=== PATIENT | female | born 1960 | race Caucasian/White ===

== ENCOUNTER → 2017-05-01 | Outpatient (CLI) | payer OTHER ==
[~2017-05-01] MED LIST: ASPIRIN81 MG PO; COMBIVENT U/D3 M3 INH; ELIQUIS5 MG PO; FLEXERIL10 MG PO; FUROSEMIDE40 MG PO; IBUPROFEN PO; IBUPROFEN800 MG PO; LEVAQUIN PO; LORTAB 5/500 TA1 TA2 PO; PERCOCET5/325 PO; PHENERGAN W/CO120 ML PO; PREDNISONE10 MG PO; PRILOSEC20 M1 PO; SYMBICORT INH; THERA FLU; ZITHROMAX PO; [UNRECOGNIZED DRUG - OTHER] PO
--- NOTE | ~2017-05-01 | MR11 ---
[facility]. [facility] A Service of [facility] & [facility] RADIOLOGY TEXT RESULTS PATIENT: RICHELLE REID LOCATION: [facility] : 60 UNIT #: [id number] AGE: [address]: Jose Delatorre MD SEX: F ORDER DR: [id number] [address] [address] [id number] MR#: [id number] Acc #: [id number] NAME: RICHELLE REID : 1960 SEX: F STUDY DATE/TIME: 05/01/2017 11:31 UNIT: [facility] ROOM: STUDY DESCRIPTION: MR Ankle Wo Contrast Rt Attending Physician: Jeanne Delatorre M.D. Referring Physician: Jeanne Delatorre M.D. Ordering Physician: Jeanne Delatorre M.D. Primary Care Physician: Reg Dupree [facility] REPORT This report is preliminary unless electronic signature is present. EXAM MRI right ankle hindfoot without contrast 05/01/2017 HISTORY Order states, avascular necrosis. History sheet states no trauma or surgery. Diffuse ankle pain for less than 1.5 months. Multiple foci of AVN at other joints. COPD. COMPARISON Right ankle radiographs 04/25/2017 and MRI of the right foot 11/1978, facet. Office notes [facility] 04/25/2017. FINDINGS There has been development of multifocal avascular necrosis/bone infarct in the tibia, talus, and calcaneus. Enlarged bone infarct in the distal tibia extends to within 5 mm of the subarticular tibial plafond. Tibial bone infarct measures 4.8 x 2.3 cm (craniocaudal x transverse). There is no collapse or articular involvement. A second small bone infarct of the medial malleolus along its deep aspect probably communicates with the larger lesion. There is extensive avascular necrosis of the posterior half of the talus. Slight osteochondral irregularity and depression of the medial dome of the talus dates back to a lesion present in 2009 where there was a osteochondral lesion or fracture without depression. There is no talar dome collapse. The zone of the talar avascular necrosis involves the posterior facet and measures 2.6 cm AP x 1.7 cm craniocaudal. Talar neck and head are normal. No additional bone infarct is noted in the posterior calcaneus extending from just deep to the posterior facet towards the posterior central calcaneus and measures up to 4.4 cm in length by 1.5 cm in transverse dimension. There is no collapse. [facility]. [facility] A Service of [facility] RADIOLOGY TEXT RESULTS PATIENT: RICHELLE REID LOCATION: [facility] : 60 UNIT #: [id number] AGE: [address]: Jose Delatorre MD SEX: F ORDER DR: There is a moderate tibiotalar and posterior subtalar complex signal joint effusion with posterior recess distension. No sizeable loose bodies are noted. There is minimal arthritic change of the calcaneal cuboid articulation. There is a tiny bone infarct in the central navicular. No fracture is identified. Sinus tarsi and tarsal tunnel are normal. Chronic anterior talofibular ligament abnormality is noted. The remainder of the ankle ligaments are intact. Ankle tendons are within normal limits. There is no muscle atrophy. IMPRESSION 1. Avascular necrosis of the posterior half of the talus. There is a chronic osteochondral subcentimeter depression in the medial dome of the talus at the site of a prior osteochondral lesion noted on prior MRI of 11/10/2009. There is no evidence of talar dome collapse. 2. Bone infarcts of the distal tibia, calcaneus, and navicular as above. 3. Tibiotalar and posterior subtalar joint complex signal effusions suggestive of synovitis. No loose body. 4. Minimal calcaneal cuboid arthrosis. 5. Chronic anterior talofibular ligament pathology. 6. No tendon pathology demonstrated. Dictated by... More Blackmon M.D. THIS IS AN ELECTRONICALLY VERIFIED REPORT More Blackmon M.D. at 05/03/2017 10:02 AM [facility]/to TD: 05/02/2017 18:38 JOB #: [id number] [facility]ENTER REPORT Page 1 of 1
== END | disposition home or self-care (01) ==
LOC: SMRI 11:15
DX: M87.871 Other osteonecrosis, right ankle (principal); I96 Gangrene, not elsewhere classified
CPT/HCPCS: 73721